=== PATIENT | female | born 1965 | race Caucasian/White ===

== ENCOUNTER 2018-12-06 06:24 | Day surgery (SDC) | payer OTHER, SELFPAY ==
[2018-12-06] VITALS (7 sets, daily range): BP systolic 89–117; BP diastolic 53–67; PULSE 50–55; RESP 10–15; TEMP 36.2–36.4; O2SAT 99–100; BMI 20.9
--- NOTE | 2018-12-06 | PATH_ITS ---
[facility] Accession Number: [id number] . 01 Material submitted: . rectum - RECTAL POLYP . 01 Diagnosis: Rectal Polyp, Biopsy: Tubular adenoma. MRV/12/07/2018 . 01 Electronically signed: . Lila Rios MD, Pathologist NPI- [id number] . 01 Gross description: . RECTAL POLYP: Received in formalin is 1 fragment(s) of man, soft tissue measuring 0.5 x 0.5 x 0.3 cm submitted entirely in 1 cassette(s) /CKI /CKI . 01 Pathologist provided ICD-10: D12.8 . 01 CPT . 105536 Performed at: 01 [facility] [address] [place] [address], [place], [place] [id number] MD Prashant Pope MD Phone: [phone]
[2018-12-06] MEDS: SODIUM CHLORIDE 0.9% 1,000 ML 200 ML IV (07:23)
--- NOTE | 2018-12-06 07:47 | PM.HP.1 ---
History of Present Illness Date Patient Seen: 12/06/18 Time Patient Seen: 07:47 Chief complaint: 15315 SCREENING COLONOSCOPY Narrative: 53yo F for low risk screening colonoscopy. No family history, no alarm symptoms. Patient History Medical History Graves disease (Acute) Hyperthyroidism (Acute) Social History household members: spouse Family & Social History Social History: household members spouse Meds Home Medications Medication Instructions Recorded Confirmed Type methimazole 5 mg PO DAILY 12/06/18 12/06/18 History Allergies Allergy/AdvReac Type Severity Reaction Status Date / Time No Known Drug Allergies Allergy Verified 12/06/18 07:02 Review of Systems Constitutional Constitutional: Reports as per HPI Exam Vital Signs (past 8 hours): - 12/06/18 07:22 Temperature 97.1 F L Pulse Rate 52 L Respiratory Rate 12 Blood Pressure 117/58 L Pulse Oximetry 100 Oxygen Delivery Method Room Air Narrative Exam Narrative: AAO, NAD, female of healthy weight EOMI, MMM, no scleral icterus unlabored RA soft, nt/nd MAEW visible skin dry and intact Assessment & Plan (1) Screening for colorectal cancer: Current visit: Yes Status: Acute Assessment & Plan narrative: - low risk screening colonoscopy --> all R/B/A discussed and pt wishes to proceed
[2018-12-06] MEDS: fentaNYL 250 MCG/5 ML INJ IV (08:06)
[2018-12-06] MEDS: MIDAZOLAM 5 MG/5 ML VIAL IV (08:07)
--- NOTE | 2018-12-06 08:35 | PM.OP.ENDO ---
Operative Date/Time/Diagnoses Date of procedure: 12/06/18 Time of procedure: 08:35 Pre-op diagnosis: screening colonoscopy Post-op diagnosis: same Procedure & Clinicians Study performed: Low risk screening colonoscopy Same procedure as scheduled: Yes Indications: 53yo F with no family history and no alarm symptoms for screening for CRC. Surgeon: Lala Desai Procedure Notes SCOAP/Timeout: 0753 Procedure in detail: After obtaining informed consent, the patient was brought to the GI suite and placed in the left lateral decubitus position on the examination table. After placement of appropriate monitors, the patient was given incremental doses of Versed and Fentanyl until an appropriate level of sedation was achieved. A time out was held per SCOAP protocol. A digital rectal examination was performed and did not reveal any masses or obstructing lesions nor external hemorrhoids. The colonoscope was gently passed into the patient's anus and the entire colon navigated to the level of the cecum with some difficulty due to tight turns. Prep was adequate. Once in the cecum, the scope was slowly withdrawn being sure to go before and beyond all mucosal folds and prominences as able to get a thorough examination. A single rectal polyp was noted and removed for biopsy. No other remarkable findings. At the level of the rectal vault, the scope was retroflexed and the internal anal canal was examined. The scope was straightened and air aspirated from the colon. The instrument was removed from the patient's body and the procedure was concluded. The patient was allowed to awaken from sedation without difficulty and taken to the post-anesthesia care unit in good condition. Scope withdrawal time: 11 min Sedation minutes: 40 Findings: polyp (Rectal- 2mm) Specimen(s): other (rectal polyp) Complications: none Impression: 1. Rectal Polyp Recommendations: Colonscopy in 10 years (pending path) Follow up: as needed Disposition: PACU
--- NOTE | 2018-12-06 09:18 | SUR.PHASEII ---
brought in, d/c instructions discussed. Belly soft tolerated fluids. Pt stated she was ready to go.
== END 2018-12-06 09:19 | disposition home or self-care (01) ==
PROVIDERS: PCP Physician Assistant Medical; Visit Provider Surgery
PROC: 0DJD8ZZ Inspection of Lower Intestinal Tract, Via Natural or Artificial Opening Endoscopic (ICD-10-PCS; CPT 45378; principal; 2018-12-06 07:45)
DX: Z12.11 Encounter for screening for malignant neoplasm of colon (principal); D12.8 Benign neoplasm of rectum; E05.00 Thyrotoxicosis with diffuse goiter without thyrotoxic crisis or storm
CPT/HCPCS: 45380; 99152; 99153; J2250; J3010